=== PATIENT | female | born 2000 | race Two or more races ===

== ENCOUNTER 2022-06-12 09:20 | Emergency (ER) | payer SELFPAY ==
[~2022-06-12] VITALS: Ht 165.1 cm; Wt 52.0 kg
[2022-06-12] MEDS ORDERED: MORPHINE SULFATE 4 MG/ML CPJ (NOT FOR IM USE) IV STA (09:33)
[2022-06-12 10:28] LABS: BASOPHILS % 1.1 % (0.0-2.0); LYMPHOCYTES % 21.2 % (20.0-50.0); MEAN CORPUSCULAR HEMOGLOBIN 35.2 pg (28.0-32.0); MEAN CORPUSCULAR VOLUME 102.1 fL (81.0-99.0); MEAN PLATELET VOLUME 7.5 fl (7.4-10.4); MONOCYTES % 10.5 % (2.0-8.0); NEUTROPHILS % 67.2 % (40.0-76.0); PLATELET 346 x1000/uL (130-400); RED BLOOD CELL COUNT 2.54 mill/uL (4.2-5.4)
[2022-06-12] MEDS ORDERED: DIPHENHYDRAMINE 50MG/ML VIAL IV ONE (10:30)
[2022-06-12] MEDS ORDERED: MORPHINE SULFATE 4 MG/ML CPJ (NOT FOR IM USE) IV ONE (10:30)
[2022-06-12 10:35] LABS: CHLORIDE 111 mEq/L (98-107)
[2022-06-12 10:37] VITALS: BP 137/90
[2022-06-12 10:48] LABS: HCG SCREEN NEGATIVE
[2022-06-12 11:01] LABS: PLATELET ESTIMATE NORMAL
== END 2022-06-12 12:22 | disposition left against medical advice (07) ==
LOC: ER 09:20
DX: D57.00 Hb-SS disease with crisis, unspecified (principal); R94.31 Abnormal electrocardiogram [ECG] [EKG]; Z88.3 Allergy status to other anti-infective agents; Z88.6 Allergy status to analgesic agent
CPT/HCPCS: 36415; 71045; 80053; 84703; 85025; 85044; 85660; 93005; 96374; 96375; 99285; J1200; J2270

== ENCOUNTER 2022-06-13 03:53 | Emergency (ER) | payer SELFPAY ==
[~2022-06-13] VITALS: Ht 165.1 cm; Wt 75.0 kg
[2022-06-13 03:58] VITALS: BP 122/90
[2022-06-13] MEDS ORDERED: IBUPROFEN 600MG TABLET PO STA (05:30)
[2022-06-13 06:04] LABS: BASOPHILS % 0.6 % (0.0-2.0); EOSINOPHILS % 0.1 % (0.0-5.0); HEMATOCRIT. 28.1 % (36.0-48.0); HEMOGLOBIN. 9.5 g/dL (12.0-16.0); LYMPHOCYTES % 21.4 % (20.0-50.0); MEAN CORPUSCULAR HEMOGLOBIN 34.4 pg (28.0-32.0); MEAN CORPUSCULAR VOLUME 101.5 fL (81.0-99.0); MEAN PLATELET VOLUME 7.5 fl (7.4-10.4); MONOCYTES % 11.6 % (2.0-8.0); NEUTROPHILS % 66.3 % (40.0-76.0); PLATELET 387 x1000/uL (130-400); RED BLOOD CELL COUNT 2.77 mill/uL (4.2-5.4); RED CELL DISTRIBUTION WIDTH 22.7 % (11.6-14.6)
[2022-06-13 06:14] LABS: CHLORIDE 108 mEq/L (98-107)
[2022-06-13 06:22] LABS: CLARITY URINE CLOUDY (CLEAR); COLOR URINE YELLOW (YELLOW); KETONES URINE NEGATIVE (NEGATIVE); LEUKOCYTE ESTERASE URINE 3+ (NEGATIVE); NITRITE URINE NEGATIVE (NEGATIVE); OCCULT BLOOD URINE TRACE (NEGATIVE); PROTEIN URINE 2+ (NEGATIVE); SPECIFIC GRAVITY URINE 1.015 (1.005-1.030)
== END 2022-06-13 06:15 | disposition left against medical advice (07) ==
LOC: ER 03:53 → CANBEDREQ 06-14 09:14
DX: D57.1 Sickle-cell disease without crisis (principal); N39.0 Urinary tract infection, site not specified; Z88.0 Allergy status to penicillin
CPT/HCPCS: 36415; 80053; 81003; 81025; 85025; 99283